=== PATIENT | female | born 1995 | race Caucasian/White ===

== ENCOUNTER 2021-04-10 11:09 | Emergency (ER) | payer OTHER, SELFPAY ==
--- NOTE | ~2021-04-10 | XR_ITS ---
EXAMINATION: XR cervical spine 4-5V EXAM DATE: 04/10/2021 12:11 INDICATION: Fell off skateboard and hit back of head, neck pain. TECHNIQUE: Cervical spine frontal, lateral, lateral swimmers, submentovertex and open-mouth odontoid projections. There is no prior study for comparison. FINDINGS: There is mild reversal of the normal cervical lordosis which may be positional or spasm. Th ere is no evidence of acute cervical fracture. The odontoid process is intact. Pre-dens space is no rmal. Prevertebral soft tissue is normal. There are no soft tissue abnormalities identified. Verte bral body and disc heights are well-maintained. The vertebral bodies are aligned. IMPRESSION: Mild reversal normal cervical lordosis, otherwise unremarkable cervical x-ray exam. Reviewed, dictated and finalized at location B. IMPRESSION: Mild reversal normal cervical lordosis, otherwise unremarkable cerv ical x-ray exam.
[2021-04-10 11:18] VITALS: BP 128/76; PULSE 78; RESP 14; TEMP 37.3; O2SAT 100
--- NOTE | 2021-04-10 11:40 | ED.HEATRA ---
HPI - Head Injury General Chief complaint: Head Injury Stated complaint: Possible concussion Time Seen by Provider: 04/10/21 11:41 Source: patient, RN notes reviewed and old records reviewed Mode of arrival: ambulatory Limitations: no limitations History of Present Illness HPI Narrative: 26 year old female who presents to express care with complaints of falling off of her electric skate board on Friday and hit the back of her head on the pavement. Patient states that she didn't lose consciousness but she felt dizzy and had a headache when she tried to get up. Patient states that she has had some neck pain, continued headache, intermittent dizziness and some nausea but no emesis. Patient has equal strong hand building construction supervisor, moving all extremities well on own power, able to tandem walk, walk on toes and heels with steady gait. MD Complaint: head injury Onset (ago): day(s) (on Friday which was 4 days ago) Mechanism of Injury: sports related injury Loss of Consciousness: no Location of injury: occipital Severity: moderate Severity scale (1-10): 4 Quality: aching Associated symptoms: nausea, neck pain and other (intermittent dizziness.) Related Data Allergies Allergy/AdvReac Type Severity Reaction Status Date / Time No Known Allergies Allergy Verified 04/10/21 11:26 Review of Systems Review of Systems: Narrative: CONSTITUTIONAL: Denies fever, chills, or sweats. EYES: Denies visual changes, redness, or discharge. ENT: Denies rhinorrhea, congestion, sore throat, or otalgia. CARDIOVASCULAR: Denies chest pain, palpitations, or edema. RESPIRATORY: Denies cough or dyspnea. GASTROINTESTINAL: Denies abdominal pain, positive for nausea,denies any vomiting, or diarrhea. GENITOURINARY: Denies dysuria or hematuria. SKIN: Denies rash or itching. MUSCULOSKELETAL: Denies lumbar back pain, reports some neck pain, no joint pain, or myalgia. NEUROLOGIC: positive for occipital headache, no, numbness, or weakness some intermittent dizziness. PSYCHIATRIC: Positive anxiety or depression. All systems reviewed & are unremarkable except as noted in HPI and below PMFSH Past Medical History Medical History (Updated 04/12/21 @ 16:04 by Lisa Quiles NP) Anxiety and depression Personality disorder Surgical History Surgical History (Updated 04/12/21 @ 16:07 by Lisa Quiles NP) History of placement of ear tubes Family History Family History (Updated 04/12/21 @ 16:07 by Lisa Quiles NP) Other No significant family history Social History Social History (Updated 04/12/21 @ 16:01 by Lisa Quiles NP) Smoking status: Never smoker Alcohol intake: current Alcohol use details: rare social Substance use: current Substance use type: marijuana Living arrangements: with family Gender identity (if verbalized by the patient): Female Comments At time of signature, agree with nursing past medical, surgical, social and family history. There is no relevant family history pertinent to the presenting complaint Exam Narrative: Exam Narrative: GENERAL: Well-appearing, well-nourished, and in no acute distress. HEAD: Normocephalic, atraumatic. EYES: PERRLA and EOMI.no nystagmus ENT: Nares clear, no rhinorrhea or epistaxis. Mucous membranes moist. NECK: Supple. no lymphadenopathy, reports some neck pain with movement CHEST: Clear to auscultation. No respiratory distress. SAO2 100% on room air HEART: Regular rate and rhythm. No murmur heard. Normal peripheral pulses. ABDOMEN: Soft, nontender, nondistended, normal active bowel sounds. EXTREMITIES: Normal range of motion. No edema. SKIN: Warm, dry, no rash. NEURO: No focal deficits. Alert and oriented x3. Course Vital Signs Vital signs: Vital Signs Temperature 37.3 C 04/10/21 11:18 Pulse Rate 78 04/10/21 11:18 Respiratory Rate 14 04/10/21 11:18 Blood Pressure 128/76 04/10/21 11:18 Pulse Oximetry 100 04/10/21 11:18 Temperature 37.3 C 04/10/21 11:18 Pul
== END 2021-04-10 12:51 | disposition home or self-care (01) ==
PROVIDERS: Emergency Provider Registered Nurse
DX: F07.81 Postconcussional syndrome (principal)
CPT/HCPCS: 72050; 99213; G0463

== ENCOUNTER 2021-04-19 18:20 | Outpatient (CLI) | payer OTHER, SELFPAY ==
--- NOTE | ~2021-04-19 | CT_ITS ---
CORRECTED REPORT Description changed to CT Brain wo con [id number] [facility] EXAMINATION: CT brain wo con DATE: 04/19/2021 19:00 INDICATION: Head injury TECHNIQUE: Computed tomography (CT) of the head was performed without intravenous contrast. Sagittal and coronal reconstructions were performed. The mA was adjusted according to patient size. Iterative reconstruction technique was employed. The dose-length product was 681.00 mGy-cm. COMPARISON: None FINDINGS: No fracture. No acute intracranial hemorrhage, acute infarction or abnormal extra axial fluid collection. Ventricles are normal and symmetric. No mass/mass effect. The orbits, paranasal sinuses and mastoid air cells are normal. IMPRESSION: 1. Normal head CT. No fracture or acute intracranial process. Reviewed, dictated and finalized at location A. MTDD
== END 2021-04-19 18:21 | disposition home or self-care (01) ==
PROVIDERS: PCP Nurse Practitioner Family; Visit Provider Nurse Practitioner Family
DX: S09.90XA Unspecified injury of head, initial encounter (principal)
CPT/HCPCS: 70450; 70460; Q9967

== ENCOUNTER 2022-01-17 16:44 | Emergency (ER) | payer OTHER, SELFPAY ==
[2022-01-17 16:58] VITALS: BP 115/58; PULSE 75; RESP 20; TEMP 37.3; O2SAT 100
--- NOTE | 2022-01-17 17:01 | ED.WOUNDLAC ---
HPI - Wound/Laceration General Chief Complaint: Wound/Laceration Stated Complaint: lac on right hand finger Time Seen by Provider: 01/17/22 16:56 Source: patient and RN notes reviewed Mode of arrival: ambulatory Limitations: no limitations History of Present Illness HPI narrative: 27-year-old female presents with concern for laceration to the third digit of the right hand. Reports she sustained earlier today. Reports its not bleeding, however when she bends her knuckle it opens up. She denies decrease sensation, strength, range of motion in the digit. Related Data Allergies Allergy/AdvReac Type Severity Reaction Status Date / Time No Known Allergies Allergy Verified 04/10/21 11:26 Review of Systems Review of Systems: CONSTITUTIONAL: Denies malaise, chills, sweats, or fever. SKIN: Reports laceration to the third digit of the right hand MUSCULOSKELETAL: Denies muscle skeletal pain NEUROLOGIC: Denies numbness, weakness All systems reviewed & are unremarkable except as noted in HPI and below PMFSH Past Medical History Medical History (Updated 01/17/22 @ 17:06 by Regina Iglesias NP) Anxiety and depression Personality disorder Surgical History Surgical History (Updated 04/12/21 @ 16:07 by Lisa Quiles NP) History of placement of ear tubes Family History Family History (Updated 04/12/21 @ 16:07 by Lisa Quiles NP) Other No significant family history Social History Social History (Updated 04/12/21 @ 16:01 by Lisa Quiles NP) Smoking status: Never smoker Alcohol intake: current Alcohol use details: rare social Substance use: current Substance use type: marijuana Gender identity (if verbalized by the patient): Female Comments At time of signature, agree with nursing past medical, surgical, social and family history. There is no relevant family history pertinent to the presenting complaint Exam Narrative: GENERAL: Well-appearing, well-nourished, and in no acute distress. HEAD: Normocephalic EYES: PERRLA, conjunctivae clear NECK: Supple. CHEST: Speaks in full sentences. No respiratory distress. HEART: Regular rate and rhythm. Normal and equal peripheral pulses. EXTREMITIES: Third digit of left hand has normal strength and sensation. 5/5 strength with digit flexion, extension. Range of motion normal. No clubbing, cyanosis, or edema noted. Normal digital cascade with flexion of fingers, median, ulnar and radial nerve intact. Normal sensation of each side of finger. Can perform 'okay' sign, 'cross over finger test of index and middle fingers' and 'thumbs up' sign. No scissoring. Normal thumb opposition. Good capillary refill and radial pulse. Distal capillary refill less than 3 seconds. Patient is right/left hand dominant SKIN: Warn, dry, intact, pink. 1 cm superficial linear laceration noted to the lateral edge of the third digit of the right hand near the DIP joint NEURO: Alert and oriented x3. PSYCH: Normal mood and affect Course Course Emergency Course: Wound cleaned, closed using Steri-Strips. Edges well approximated. Patient is aware of diagnosis, understands and agrees to treatment plan. Anticipatory guidance given. Patient agrees to follow-up as directed and is aware of reasons to seek care at the emergency department. Portions of this record may have been created with voice recognition software Level of Care: Express Care Visit Vital Signs Vital signs: Vital Signs Temperature 99.1 F 01/17/22 16:58 Pulse Rate 75 01/17/22 16:58 Respiratory Rate 20 01/17/22 16:58 Blood Pressure 115/58 L 01/17/22 16:58 Pulse Oximetry 100 01/17/22 16:58 Temperature 99.1 F 01/17/22 16:58 Pulse Rate 75 01/17/22 16:58 Respiratory Rate 20 01/17/22 16:58 Blood Pressure 115/58 L 01/17/22 16:58 Pulse Oximetry 100 01/17/22 16:58 Reviewed. MDM - Wound/Laceration MDM Narrative Medical decision making narrative: Wound explored for foreign body and
[2022-01-17] MEDS: TETANUS,DIPHTHERIA,AC PERTUSSIS ADULT (0.5 ML) BOOSTRIX IM (17:13)
--- NOTE | 2022-01-17 17:23 | PC.NURSE ---
steri strips and dressing placed per provider after wound soak and cleanse.
== END 2022-01-17 17:30 | disposition home or self-care (01) ==
PROVIDERS: Emergency Provider Nurse Practitioner
DX: S61.212A Laceration without foreign body of right middle finger without damage to nail, initial encounter (principal); X58.XXXA Exposure to other specified factors, initial encounter; Z23 Encounter for immunization
CPT/HCPCS: 90471; 90715; 99213; G0463